=== PATIENT | male | born 1990 | race Caucasian/White ===

== ENCOUNTER 2018-12-30 17:58 | Emergency (ER) | payer OTHER ==
[~2018-12-30] VITALS: Ht 185.4 cm; Wt 120.2 kg
[2018-12-30 18:01] VITALS: Ht 185.4 cm; Wt 120.2 kg
[2018-12-30 20:08] VITALS: BP 120/66
== END 2018-12-30 20:08 | disposition home or self-care (01) ==
LOC: ED 17:58
DX: S01.112A Laceration without foreign body of left eyelid and periocular area, initial encounter (principal); W22.8XXA Striking against or struck by other objects, initial encounter; Y93.89 Activity, other specified; Y92.89 Other specified places as the place of occurrence of the external cause; Y99.8 Other external cause status
CPT/HCPCS: J2001